=== PATIENT | female | born 1995 | race Caucasian/White ===

== ENCOUNTER 2016-11-04 00:51 | Outpatient (CLI) | payer OTHER ==
[~2016-11-04] VITALS: Ht 165.1 cm; Wt 65.0 kg
[2016-11-04 01:49] VITALS: Ht 165.1 cm; Wt 65.0 kg
[2016-11-04] MEDS ORDERED: PRENTAB26 PO (01:51)
--- NOTE | 2016-11-05 10:50 | EDITING REQUIRED CODING QUERY ---
DIAGNOSIS NEEDED To promote full compliance with coding requirements relating to patient care, physician participation is requested in all cases of hydroelectric station operator chief uncertainty. Please assist us with the question(s) below: Coding Question: The patient received care in labor and delivery on 11/04/16 as noted within the record. Please document the diagnosis that is being addressed by the medication/treatment. Provider Response: DIAGNOSIS:decreased movement Prior history of severe preeclampsia and delivery at 28 weeks Thank you for your assistance, Sheridan Bhatt - Tree Driller
[2017-01-01] MEDS ORDERED: SUBUTEX PO (12:05)
== END 2016-11-04 01:41 ==
LOC: C.OPB 00:51 → C.LD 00:51 → C.OPB 01:41
PROVIDERS: ATTEND Obstetrics & Gynecology
DX: O36.8130 Decreased fetal movements, third trimester, not applicable or unspecified (principal); Z3A.30 30 weeks gestation of pregnancy

== ENCOUNTER → 2016-12-12 | Outpatient (CLI) | payer OTHER ==
[~2016-12-12] MED LIST: BUPR1SUB23 PO; PRENTAB26 PO; SUBUTEX PO
== END | disposition home or self-care (01) ==
LOC: C.LABSPEC 09:26
PROVIDERS: ATTEND Obstetrics & Gynecology
DX: Z34.83 Encounter for supervision of other normal pregnancy, third trimester (principal)

== ENCOUNTER 2017-01-06 05:43 | Inpatient (IN) | payer OTHER ==
--- NOTE | 2016-12-26 14:55 | HISTORY & PHYSICAL EXAMINATION ---
DATE OF ADMISSION: 01/06/2017 CHIEF COMPLAINT: Intrauterine at term, previous , history of severe toxemia of with IUGR. HISTORY OF PRESENT ILLNESS: The patient is a 21-year-old 3, para 1, had 1 spontaneous AB. She delivered in 2013 at [facility], severe toxemia of , at 28 weeks, a girl, weighed 1 pound 15 ounces. Present has been well dated. Her due date is 01/13/2017. has been also complicated by issues by smoking. She is a half a pack a day smoker. She has had frequent visits, several ultrasounds to ensure growth, adequate growth and fluid and she is presently being scheduled for repeat at term. PAST MEDICAL HISTORY: She has a 3-year-old girl in good health. ALLERGIES: No known drug allergies. PAST SURGICAL HISTORY: , T\T\A, wisdom teeth removed. MEDICAL HISTORY: No history of rheumatic fever, heart disease, heart murmur, diabetes, tuberculosis. SOCIAL HISTORY: Half a pack a day smoker for 8 years. No excessive alcohol intake. She works in home healthcare. FAMILY HISTORY: Mom is 42 in good health. Father 41 in good health. Two brothers in good health. REVIEW OF SYSTEMS: HEAD: No symptoms of frequent or severe headaches. EYES: No symptoms of blurred vision, double vision. EARS: No symptoms of frequent ear infections, difficulty hearing. NOSE: No symptoms of frequent nosebleeds, difficulty breathing through her nose. THROAT: No symptoms of frequent or severe sore throats, difficulty swallowing. RESPIRATORY SYSTEM: No history of asthma, chest pain, shortness of breath. PHYSICAL EXAMINATION: GENERAL: Well-developed, well-nourished 21-year-old white female, alert, oriented x3 and cooperative in no acute distress, appears stated age. EYES: Conjunctivae are pink, sclerae white, no evidence of jaundice. EARS: Had normal light reflex bilaterally. NOSE: Had normal mucosa. Septum is midline. There were no polyps. THROAT: No erythema or evidence of infection. Teeth are in good state of repair. HEAD: Was normocephalic, normal distribution of hair. NECK: Supple. Trachea midline. Thyroid is not enlarged. There is no adenopathy appreciated. Both carotids are of good intensity. CHEST: Clear to auscultation and percussion. No wheezes, rales or rhonchi appreciated. HEART: Regular rhythm. S1 and S2 are normal. BREASTS: Normal. ABDOMEN: Term size fetus, vertex presentation. Well-healed Pfannenstiel scar. PELVIC: Cervix was posterior and closed. MUSCULOSKELETAL: Revealed no calf tenderness. IMPRESSIONS OF THIS CASE: Status post previous section, status post tonsillectomy and adenoidectomy, status post wisdom teeth removal, history of toxemia of , intrauterine at term. MTDD
[2017-01-01 12:53] LABS: BASO % 0.1 %; BASO ABS # 0.01 K/uL (0-0.2); COMPLETE YES; EOS % 0.3 %; IG% 0.3 %; LYMPH % 22.6 %; MEAN CELL VOLUME 84.3 fL (80-100); MEAN CORPUSCULAR HEMOGLOBIN 28.2 pg (25-34); MEAN CORPUSCULAR HGB CONC 33.4 g/dl (32-36); MEAN PLATELET VOLUME 10.7 fL (7.4-10.4); MONO % 6.8 %; NEUT % 69.9 %; PLATELET COUNT 227 K/uL (130-400); RED BLOOD COUNT 4.15 M/uL (4.2-5.4); WHITE BLOOD COUNT 8.85 K/uL (4.8-10.8)
[2017-01-01 13:15] LABS: INR 0.9 (0.9-1.1); PARTIAL THROMBOPLASTIN RATIO 0.9
[2017-01-01 13:24] LABS: BLOOD UREA NITROGEN 5 mg/dl (7-18); BUN/CREATININE RATIO 8.5 (10-20); CALCIUM 8.3 mg/dl (8.5-10.1); CARBON DIOXIDE 24 mmol/L (21-32); CHLORIDE 108 mmol/L (98-107); CREATININE 0.64 mg/dl (0.60-1.20); GLUCOSE 69 mg/dl (70-99); POTASSIUM 3.8 mmol/L (3.5-5.1); SODIUM 141 mmol/L (136-145)
[2017-01-06] VITALS (14 sets, daily range): BP systolic 116–131; BP diastolic 58–83; PULSE 53–82; TEMP 36.6–37.1; O2SAT 94–98; Ht 165.1 cm; Wt 77.3 kg
[~2017-01-06] VITALS: Ht 165.1 cm; Wt 77.3 kg
[~2017-01-06 05:43] MED LIST changes: -BUPR1SUB23 PO
[2017-01-06] MEDS ORDERED: LACTATED RINGER'S 1000ML 1,000 ML IV SCH ×3 (05:51→06:00)
[2017-01-06] MEDS ORDERED: CITRIC ACID/SODIUM CITRATE 15 ML UDC PO SCH (06:00)
[2017-01-06] MEDS ORDERED: CEFOXITIN IV 2000 MG in DEXTROSE 5% 50ML IV SCH (06:00)
[2017-01-06 06:41] LABS: BASO % 0.2 %; BASO ABS # 0.03 K/uL (0-0.2); EOS % 0.2 %; HEMATOCRIT 35.4 % (37-47); IG% 0.3 %; LYMPH % 25.2 %; LYMPH ABS # 3.17 K/uL (1.2-3.4); MEAN CELL VOLUME 83.7 fL (80-100); MEAN CORPUSCULAR HEMOGLOBIN 28.1 pg (25-34); MEAN PLATELET VOLUME 10.6 fL (7.4-10.4); MONO % 6.2 %; NEUT % 67.9 %; PLATELET COUNT 254 K/uL (130-400); RED BLOOD COUNT 4.23 M/uL (4.2-5.4); WHITE BLOOD COUNT 12.58 K/uL (4.8-10.8)
[2017-01-06 06:46] LABS: COMPLETE YES; MEAN CORPUSCULAR HGB CONC 33.6 g/dl (32-36)
[2017-01-06] MEDS ORDERED: ATROPINE SULFATE 0.1 MG/ML 5ML SYR IV PRN (07:00)
[2017-01-06] MEDS ORDERED: ONDANSETRON INJ 2 MG/ML 2 ML VIAL IV PRN ×2 (07:00→08:45)
[2017-01-06] MEDS ORDERED: LABETALOL HCL IV 5 MG/ML 20ML IV PRN (07:00)
[2017-01-06] MEDS ORDERED: MEPERIDINE HCL 25 MG/ML CARP IV PRN (07:00)
[2017-01-06] MEDS ORDERED: FENTANYL CITRATE INJ 50 MCG/1 ML 2 ML VIAL IV PRN (07:00)
[2017-01-06] MEDS ORDERED: HYDROmorphone INJ 1 MG/ML SYR IV PRN (07:00)
[2017-01-06] MEDS ORDERED: EpHEDrine SULFATE INJ 50 MG/ML AMP IV PRN ×2 (07:00→08:45)
[2017-01-06 07:21] LABS: PARTIAL THROMBOPLASTIN RATIO 0.9; PROTHROMBIN TIME (PATIENT) 10.3 SECONDS (9.0-12.0)
[2017-01-06] MEDS ORDERED: MoRPHine SULFATE PF 1 MG/ML 10 ML AMP/VIAL ONE (07:28)
[2017-01-06 07:40] LABS: BLOOD UREA NITROGEN 5 mg/dl (7-18); BUN/CREATININE RATIO 8.9 (10-20); CARBON DIOXIDE 23 mmol/L (21-32); CHLORIDE 108 mmol/L (98-107); CREATININE 0.55 mg/dl (0.60-1.20); GLUCOSE 77 mg/dl (70-99); POTASSIUM 3.8 mmol/L (3.5-5.1); SODIUM 140 mmol/L (136-145)
[2017-01-06] MEDS ORDERED: OXYTOCIN INJ 10 UNITS/ML VIAL ONE (08:29)
[2017-01-06] MEDS ORDERED: PHENYLEPHRINE 100MCG/ML 5ML SYR ONE (08:29)
[2017-01-06] MEDS ORDERED: SODIUM CHLORIDE 0.9% 1000ML 1,000 ML IV PRN (08:39)
[2017-01-06] MEDS ORDERED: LACTATED RINGER'S 1000ML 500 ML IV PRN (08:39)
[2017-01-06] MEDS ORDERED: NALOXONE HCL INJ 1 MG in SODIUM CHLORIDE 0.9% 1000ML 1,000 ML IV PRN (08:39)
[2017-01-06] MEDS ORDERED: NALOXONE HCL INJ 0.08 MG in SYRINGE 1.8 ML IV PRN (08:39)
[2017-01-06] MEDS ORDERED: NALOXONE HCL 0.4 MG/1 ML VIAL/CARP IV PRN (08:45)
[2017-01-06] MEDS ORDERED: NO NARCOTICS OR SEDATIVES SCH (08:45)
[2017-01-06] MEDS ORDERED: DiphenhydrAMINE HCL 50 MG/ML VIAL IV PRN ×2 (08:45)
[2017-01-06] MEDS ORDERED: MoRPHine SULFATE PF 1 MG/ML 10 ML AMP/VIAL EPI PRN (08:45)
[2017-01-06] MEDS ORDERED: MoRPHine SULFATE 2 MG/ML CARP IV PRN (08:45)
[2017-01-06] MEDS ORDERED: NALBUPHINE HCL INJ 10 MG/ML AMP IV PRN (08:45)
[2017-01-06] MEDS ORDERED: LANOLIN OINT EXT PRN ×2 (09:00)
[2017-01-06] MEDS ORDERED: MAGNESIUM HYDROXIDE SUSP 30 ML UDC PO PRN (09:00)
[2017-01-06] MEDS ORDERED: SENNA 8.6 MG TAB PO PRN (09:00)
[2017-01-06] MEDS ORDERED: HYDROCORTISONE ACETATE 25 MG SUPP PR PRN (09:00)
[2017-01-06] MEDS ORDERED: DIPHTHERIA/TETANUS/PERTUSSIS 0.5 ML SYR/VIAL IM. ONE (09:00)
[2017-01-06] MEDS ORDERED: BENZOCAINE 20% AER SPR 82.5 GM CAN EXT PRN (09:00)
[2017-01-06] MEDS ORDERED: SUPERCREAM 0.870 % 15GM JAR EXT PRN (09:00)
[2017-01-06] MEDS: KETOROLAC TROMETHAMINE 30 MG/ML VIAL IV. PRN ×3 (10:16→23:09)
[2017-01-06] MEDS: OXYTOCIN INJ 20 UNITS in LACTATED RINGER'S 1000ML 1,000 ML IV SCH ×2 (10:40→19:34)
--- NOTE | 2017-01-06 11:00 | OPERATIVE REPORT ---
DATE OF OPERATION: 01/06/2017 PROCEDURE: Repeat low segment section. INDICATIONS FOR SURGERY: Previous . PREOPERATIVE DIAGNOSES: Intrauterine , 39 weeks' gestation, previous . POSTOPERATIVE DIAGNOSES: Same, nuchal cord x1, delivered live male , thin lower uterine segment. ESTIMATED BLOOD LOSS: 500 mL. SURGEON: Dr. Johnson. TANNING WHEEL FILLER: sales assistants and salespersons. ANESTHESIA: Spinal. OPERATIVE FINDINGS AND PROCEDURE: The patient was brought to the OR table, correctly identified by armband and conversation. Spinal anesthesia was administered. Carpio catheter was inserted aseptically in the bladder connected to gravity drainage. Compression stockings were applied. Lower abdomen was painted with an alcohol based sterilizing solution, draped in usual sterile fashion. The level of anesthesia was tested and found to be adequate. Pfannenstiel incision was made through a previous scar. Hemostasis was secured by electrocauterization. Fascia was incised transversely, from underlying muscle by blunt and sharp dissection. Recti muscles were in the midline. There was some omentum adherent to the undersurface of the previous incision. We were able to get adequate exposure of the lower uterine segment which was extremely thin. Incision was made above the vesicouterine fold. Bladder was pushed out of the operative field. Lower uterine segment was entered with scissors. Clear amniotic fluid was seen. Museum Docent's hand was inserted in uterine cavity. A vectis retractor was applied to the head and with fundal pressure, the 's head and body was delivered. Also it should be noted that cord was reduced over the head prior to delivery of the body. Then the cord was clamped and cut. The cord blood was taken. The infant was attended to by the customer security clerk, Dr. Canales was scrubbed and present at time of delivery. After taking the cord blood, placenta was removed manually. Uterine cavity was cleansed with a clean sponge. The uterus, tubes, and ovaries were brought out through the incision. Ten units of IM Pitocin was given into the uterine cavity. Then we did a very careful in a double layer approximation of the myometrium. The muscular layer was approximated with continuous heavy duty chromic and we made sure to thicken up the lower uterine segment. After that, close the fascial layer with a heavy duty Vicryl. Palpation revealed local 1 weak area towards the left side and this was approximated with a qocewa-[id number] suture of heavy duty Vicryl and about 2 other heavy duty [id number] sutures were used to complete the hemostatic process. Following this, palpation of the uterine segment found it to be intact and protected. The peritoneal edges were restored with a continuous 3-0 chromic. Tubes and ovaries were inspected and found to be normal. Pelvis was cleansed of all blood clots and debris. Uterus, tubes, and ovaries were reinserted into the abdominal cavity. The omentum was taken off the anterior abdominal wall. Careful anatomical approximation of the anterior abdominal wall was now performed. Peritoneal edges were restored with a continuous mattress suture of chromic catgut. Recti muscles were approximated approximately interrupted [id number] suture of chromic catgut. The fascia was closed with continuous interlocking suture of Vicryl on each side and run to the middle and then tied. The subcutaneous was approximated with continuous plain and skin edges were approximated with staple clips. I attest to the content of the Intraoperative Record and any orders documented therein. Any exceptio ns are noted below.
[2017-01-06] MEDS: MEPERIDINE HCL 25 MG/ML CARP IV PRN ×2 (11:35→11:53)
[2017-01-06] MEDS: SIMETHICONE 80 MG CHEW PO SCH ×3 (13:00→19:35)
--- NOTE | 2017-01-06 13:38 | Anesthesiology Progress Note ---
Anesthesia Post Op Note Date & Time Jan 06, 2017 at 13:35 Vital Signs Pain Intensity: 8.0 Notes Mental Status: alert / awake / arousable, participated in evaluation Pt Amnestic to Procedure: Yes Nausea / Vomiting: adequately controlled Pain: adequately controlled Airway Patency, RR, SpO2: stable & adequate BP & HR: stable & adequate Hydration State: stable & adequate Neuraxial Anesthesia: was administered, sensory block is resolving Anesthetic Complications: no major complications apparent
[2017-01-06] MEDS: DOCUSATE SODIUM 100 MG CAP PO SCH (19:35)
[2017-01-07] VITALS (10 sets, daily range): BP systolic 110–135; BP diastolic 60–85; PULSE 55–72; TEMP 36.9–37.4; O2SAT 95–99
[2017-01-07] MEDS ORDERED: DC INTRASPINAL MORPHINE SCH (01:45)
[2017-01-07] MEDS ORDERED: MEPERIDINE HCL 75 MG/ML CARP IV PRN (01:46)
[2017-01-07] MEDS ORDERED: ONDANSETRON INJ 2 MG/ML 2 ML VIAL IV PRN (01:46)
[2017-01-07] MEDS ORDERED: ZOLPIDEM TARTRATE 5 MG TAB PO PRN (01:46)
[2017-01-07] MEDS ORDERED: KETOROLAC TROMETHAMINE 30 MG/ML VIAL IV. PRN (01:46)
[2017-01-07] MEDS ORDERED: DiphenhydrAMINE HCL 50 MG/ML VIAL IV PRN (01:46)
[2017-01-07] MEDS ORDERED: OXYCODONE/ACETAMINOPHEN 5-325 TAB PO PRN (01:46)
[2017-01-07] MEDS ORDERED: MEPERIDINE HCL 50 MG/ML CARP IV PRN (01:46)
[2017-01-07] MEDS: IBUPROFEN 600 MG TAB PO PRN ×4 (03:53→19:30)
[2017-01-07] MEDS: OXYCODONE/ACETAMINOPHEN 5-325 TAB PO PRN ×4 (03:54→19:30)
[2017-01-07 07:02] LABS: BASO % 0.2 %; BASO ABS # 0.02 K/uL (0-0.2); COMPLETE YES; EOS % 0.3 %; HEMATOCRIT 30.3 % (37-47); IG% 0.2 %; LYMPH % 14.6 %; LYMPH ABS # 1.28 K/uL (1.2-3.4); MEAN CELL VOLUME 83.2 fL (80-100); MEAN CORPUSCULAR HEMOGLOBIN 27.2 pg (25-34); MEAN CORPUSCULAR HGB CONC 32.7 g/dl (32-36); MEAN PLATELET VOLUME 10.2 fL (7.4-10.4); MONO % 7.2 %; NEUT % 77.5 %; PLATELET COUNT 162 K/uL (130-400); RED BLOOD COUNT 3.64 M/uL (4.2-5.4); WHITE BLOOD COUNT 8.77 K/uL (4.8-10.8)
--- NOTE | 2017-01-07 08:18 | Progress Note ---
Subjective Jan 07, 2017. Subjective conversation w/ patient Ambulation: limited ambulation Voiding: rico catheter in place Passing Gas: No Diet Tolerance: Clear Liquids Lochia: Small Feeding Type: Breast Feeding Review of Systems Constitutional: + fever Objective Vital Signs Date Time Temp Pulse Resp B/P Pulse Ox O2 Delivery O2 Flow Rate FiO2 01/07/17 07:57 37.4 59 14 129/79 98 Room Air 01/07/17 04:40 37.1 70 18 110/60 95 Room Air 01/07/17 02:00 18 97 01/07/17 01:05 18 97 01/07/17 00:15 18 96 01/06/17 23:15 37.1 62 18 116/70 95 Room Air 01/06/17 23:15 18 95 01/06/17 23:15 95 Room Air 01/06/17 22:15 18 96 01/06/17 21:30 18 96 01/06/17 20:40 18 95 01/06/17 19:40 36.9 82 18 120/58 97 Room Air 01/06/17 19:40 18 97 01/06/17 18:57 18 98 01/06/17 18:00 18 97 01/06/17 17:15 18 98 01/06/17 16:00 18 97 01/06/17 16:00 97 Room Air 01/06/17 16:00 36.9 67 18 118/70 97 Room Air 01/06/17 15:15 18 96 01/06/17 14:00 16 94 01/06/17 13:15 36.6 61 16 131/83 Room Air 01/06/17 13:00 16 97 01/06/17 11:45 98 Room Air 01/06/17 11:45 36.6 53 16 122/78 Room Air 01/06/17 11:45 16 98 Physical Exam General Appearance: WELL-APPEARING Abdomen: non tender, + abnormal bowel sounds Fundus: Firm, Non-Tender Incision Description: Clean, Dry & Intact Extremities: no pedal edema, no calf tenderness Laboratory Results Last 24 Hours Test 01/07/17 06:25 White Blood Count 8.77 K/uL Red Blood Count 3.64 M/uL Hemoglobin 9.9 g/dL Hematocrit 30.3 % Mean Corpuscular Volume 83.2 fL Mean Corpuscular Hemoglobin 27.2 pg Mean Corpuscular Hemoglobin Concent 32.7 g/dl Platelet Count 162 K/uL Mean Platelet Volume 10.2 fL Neutrophils (%) (Auto) 77.5 % Lymphocytes (%) (Auto) 14.6 % Monocytes (%) (Auto) 7.2 % Eosinophils (%) (Auto) 0.3 % Basophils (%) (Auto) 0.2 % Neutrophils # (Auto) 6.79 K/uL Lymphocytes # (Auto) 1.28 K/uL Monocytes # (Auto) 0.63 K/uL Eosinophils # (Auto) 0.03 K/uL Basophils # (Auto) 0.02 K/uL RDW Standard Deviation 39.8 fL RDW Coefficient of Variation 13.0 % Immature Granulocyte % (Auto) 0.2 % Immature Granulocyte # (Auto) 0.02 K/uL Assessment and Plan Problem List Medical Problems: (1) Opiate withdrawal Status: Acute (2) Status: Acute Post-Op Day#: 1 Continue Routine Care: hypoactive bowel sounds present
[2017-01-07] MEDS: DOCUSATE SODIUM 100 MG CAP PO SCH ×2 (08:31→19:30)
[2017-01-07] MEDS: SIMETHICONE 80 MG CHEW PO SCH ×4 (08:31→19:30)
[2017-01-07] MEDS: FERROUS SULFATE 325 MG TAB PO SCH (08:31)
[2017-01-07] MEDS: PRENATAL VITAMIN TAB PO SCH (08:32)
--- NOTE | 2017-01-07 10:32 | Anesthesiology Progress Note ---
Anesthesia Post Op Note Date & Time Jan 07, 2017 at 10:32 Vital Signs Pain Intensity: 4.0 Vital Signs Past 12 Hours Date Time Temp Pulse Resp B/P Pulse Ox O2 Delivery O2 Flow Rate FiO2 01/07/17 08:51 98 Room Air 01/07/17 07:57 37.4 59 14 129/79 98 Room Air 01/07/17 07:30 98 Room Air 01/07/17 04:40 37.1 70 18 110/60 95 Room Air 01/07/17 02:00 18 97 01/07/17 01:05 18 97 01/07/17 00:15 18 96 01/06/17 23:15 37.1 62 18 116/70 95 Room Air 01/06/17 23:15 18 95 01/06/17 23:15 95 Room Air Notes Mental Status: alert / awake / arousable, participated in evaluation Pt Amnestic to Procedure: Yes Nausea / Vomiting: adequately controlled Pain: adequately controlled Airway Patency, RR, SpO2: stable & adequate BP & HR: stable & adequate Hydration State: stable & adequate Anesthetic Complications: no major complications apparent
[2017-01-08] MEDS: IBUPROFEN 600 MG TAB PO PRN ×3 (01:12→14:01)
[2017-01-08] MEDS: OXYCODONE/ACETAMINOPHEN 5-325 TAB PO PRN ×3 (01:12→14:00)
[2017-01-08 07:40] VITALS: BP 125/80; PULSE 55; TEMP 37.1; O2SAT 98
[2017-01-08] MEDS: FERROUS SULFATE 325 MG TAB PO SCH (07:51)
[2017-01-08] MEDS: PRENATAL VITAMIN TAB PO SCH (07:51)
[2017-01-08] MEDS: SIMETHICONE 80 MG CHEW PO SCH ×2 (07:51→13:59)
[2017-01-08] MEDS: DOCUSATE SODIUM 100 MG CAP PO SCH (07:51)
[2017-01-08] MEDS ORDERED: BISACODYL 10 MG SUPP PR PRN (09:00)
--- NOTE | 2017-01-08 10:48 | Progress Note ---
Subjective Jan 08, 2017. Subjective conversation w/ patient Ambulation: ambulating normally Voiding: no voiding problems, rico catheter in place Passing Gas: Yes Diet Tolerance: Regular Diet Lochia: Small Feeding Type: Breast Feeding Review of Systems Constitutional: + fever Objective Vital Signs Date Time Temp Pulse Resp B/P Pulse Ox O2 Delivery O2 Flow Rate FiO2 01/07/17 23:05 36.9 55 16 121/67 97 Room Air 01/07/17 23:05 Room Air 01/07/17 19:30 Room Air 01/07/17 19:30 37.1 66 16 119/66 99 Room Air 01/07/17 15:00 96 Room Air 01/07/17 15:00 37.0 72 18 135/85 96 Room Air Physical Exam General Appearance: WELL-APPEARING Respiratory/Chest: lungs clear Abdomen: normal bowel sounds, non tender Fundus: Firm, Non-Tender Incision Description: Clean, Dry & Intact Extremities: no pedal edema, no calf tenderness Assessment and Plan Problem List Medical Problems: (1) Opiate withdrawal Status: Acute (2) Status: Acute Post-Op Day#: 2
--- NOTE | 2017-01-08 10:50 | Discharge Instructions ---
Discharge Instructions Date of Service Jan 08, 2017. Admission Reason for Admission: Term , Previous Section #746 Discharge Discharge Diagnosis / Problem: repeat section Discharge Goals Goal(s): Routine recovery after Activity Recommendations Activity Limitations: as noted below ACTIVITY RECOMMENDATIONS: * Gradual return to full activity over the next 2-3 weeks. * No lifting - nothing heavier than baby over the next 2-3 weeks. * Do not engage in vigorous exercise, sexual activity or sports for 6 weeks. * Do not drive or operate any motorized equipment for 14 days. * You may shower/bathe daily. DIET: Resume Previous Diet If Breast-feeding: * Increase caloric intake by 500 calories, eat 3 well balanced meals, 2 high protein snacks a day and drink 6-8 8oz. glasses of fluid per day. BREAST CARE: If you are not breast feeding: * Wear a supportive bra 24 hours a day for one to two weeks. * Avoid stimulating your breasts and nipples as much as possible during the first few weeks after delivery. * When taking a shower, have the warm water hit your back, not breasts. * When your breasts feel full, apply ice packs. Usually three to four times a day helps ease the discomfort. * Take a mild pain medication (Tylenol / Motrin) when you are uncomfortable. If breast feeding: * Use breast milk to lubricate nipples. Lansinoh cream may be used for sore nipples. You do not need to remove cream prior to breast feeding. If using a different brand of cream, check the label for directions regarding removal of cream prior to nursing. * Wear a supportive bra. * If having problems with breasts or breast feeding, call a system consultant or your health care provider. VITAMINS: * One tablet daily. Continue taking while or until you have your check up in 6 weeks. SPECIAL CARE INSTRUCTIONS: * Vaginal rest (no tampons, douching, intercourse) until after doctor's visit. * control as discussed with doctor. * Verbalizes understanding of car seat law as reviewed with patient by nursing. * Car Seat hand-out given and reviewed with patient by nursing. * Shaken baby information reviewed with patient by nursing. Call you doctor if: * Heavy bleeding (saturating a pad an hour) or passing clots the size of your fist. Bleeding has a foul smelling odor. * A fever greater than 100.4 degrees F (38 degrees C) on two occasions four hours apart and/or chills. * Unusual pain in the pelvic or vaginal areas. Pain should improve each day . * Call the doctor for any increased redness, drainage or swelling around the incision and any pain unrelieved by prescribed pain medication. * Signs and symptoms of phlebitis(possible blood clots forming in the veins): leg pain, warm, red or swollen area on leg. * "Baby Blues" lasting longer than two weeks. If you have any questions or concerns, call your health care practitioner at [phone]. FOLLOW-UP VISIT: Follow-up visit for examination in 6 weeks. Incision check (staple removal) in 1 week. Please call office at [phone] if not already scheduled. . Current Hospital Diet Patient's current hospital diet: Regular OB Diet Discharge Diet Recommended Diet: Regular Diet Procedures Procedures Performed: Live Male @ 0803 Pending Studies Studies pending at discharge: no Medical Emergencies . Who to Call and When: Medical Emergencies: If at any time you feel your situation is an emergency, please call 911 immediately. . Non-Emergent Contact Non-Emergency issues call your: Salesperson [employer] Call Non-Emergent contact if: temperature is above 100.5 . . "Provider Documentation" section prepared by Cody Johnson. VTE Core Measure Inpt VTE Proph given/why not?: Treatment not indicated
--- NOTE | 2017-01-08 11:07 | DISCHARGE SUMMARY ---
Mrs. Yee was admitted to the hospital for repeat section. She had had a previous due to severe toxemia with an early delivery. She was presently documented to be 39 weeks' gestation, had had an uneventful course, had had frequent visits to check her pressures. On the day of admission, she was taken to the OR where she underwent repeat low-segment section, delivered a live infant in good condition. At the time of surgery, the lower uterine segment was thin and I repaired the defect in the lower uterine segment with a double-layer closure. Her preoperative hemoglobin was 11.7, hematocrit 35.0. Postoperatively, hemoglobin fell to 9.9, hematocrit 30.3. On the second postoperative day, the patient was ambulating well, eating well. Her pain was well controlled with a combination of Percocet and Motrin. She requested early discharge. She was given prescriptions for 60 Percocet 5/325 and Motrin and was told to return to the office to get her dom out.
[2017-01-08 14:00] VITALS: BP_DIAS 80; PULSE 55; TEMP 37.1
== END 2017-01-08 14:00 | disposition home or self-care (01) | DRG 766 ==
LOC: C.LD 05:43 → C.OBG 12:15 → EDSTATUS 12:31 → C.OBG 01-08 08:44
PROVIDERS: ADMIT Obstetrics & Gynecology; ATTEND Obstetrics & Gynecology
PROC: 10D00Z1 Extraction of Products of Conception, Low, Open Approach (ICD-10-PCS; principal; 2017-01-06 07:30)
DX: O34.211 Maternal care for low transverse scar from previous cesarean delivery (principal); Z23 Encounter for immunization; O99.334 Smoking (tobacco) complicating childbirth; F17.210 Nicotine dependence, cigarettes, uncomplicated; O34.593 Maternal care for other abnormalities of gravid uterus, third trimester; N85.8 Other specified noninflammatory disorders of uterus; O69.81X0 Labor and delivery complicated by cord around neck, without compression, not applicable or unspecified; Z79.891 Long term (current) use of opiate analgesic; Z37.0 Single live birth; Z3A.39 39 weeks gestation of pregnancy

== ENCOUNTER → 2017-04-16 | Outpatient (CLI) | payer BC, OTHER ==
[~2017-04-16] MED LIST changes: +BUPR1SUB23 PO
--- NOTE | 2017-04-16 14:26 | DIAGNOSTIC IMAGING REPORT ---
CHEST 2 VIEWS ROUTINE CLINICAL HISTORY: +PPD COMPARISON STUDY: No previous studies for comparison. FINDINGS: The cardiac and mediastinal contours are normal. There is no evidence of focal pulmonary consolidation. There is no evidence of failure. No pleural effusions are visualized.[ There is no conventional radiographic evidence of adenopathy. No granulomatous calcifications are visualized. IMPRESSION: No active disease in the chest. Electronically signed by: Fortino Mccarthy M.D. 04/16/2017 2:24 PM Dictated Date/Time: 04/16/2017 2:24 PM
== END | disposition home or self-care (01) ==
LOC: C.RAD 13:47
PROVIDERS: ATTEND Preventive Medicine Occupational Medicine
DX: R76.11 Nonspecific reaction to tuberculin skin test without active tuberculosis (principal)

== ENCOUNTER 2017-06-21 15:08 | Emergency (ER) | payer BC, OTHER ==
[~2017-06-21] VITALS: Ht 165.1 cm; Wt 68.1 kg
[~2017-06-21 15:08] MED LIST changes: -BUPR1SUB23 PO
[2017-06-21 15:17] VITALS: TEMP 37.1; Ht 165.1 cm; Wt 68.1 kg
[2017-06-21] MEDS ORDERED: SODIUM CHLORIDE 0.9% 1000ML 1,000 ML IV STA (15:41)
--- NOTE | 2017-06-21 15:41 | EMERGENCY ROOM VISIT NOTE ---
History Report prepared by Maeveibted: Akosua Archibald Under the Supervision of: Dr. Lawrence Borges D.O. First contact with patient: 15:29 Chief Complaint: ED VAG BLEEDING Stated Complaint: POSSIBLE MISCARRIAGE History of Present Illness The patient is a 21 year old female who presents to the Emergency Room with complaints of intermittent vaginal bleeding since 1445 yesterday afternoon. She reports she experienced abdominal cramping and then felt "blood cline out" of her vagina yesterday afternoon. She soaked through 2 to 3 pads with blood. Today she has experienced brown colored spotting. This is her 4th and she produced a positive test earlier this month. She has experienced 1 miscarriage and has 2 children at home. Her last menstrual period was on April 25, 2017. She was supposed to see her MAINTENANCE TECHNICIAN yesterday, but was unable to get a dubbing machine operator for her kids. Source of History: patient Onset: 1445 yesterday Position: other (vagina) Quality: other (vaginal bleeding) Timing: other (intermittent) Associated Symptoms: + abdominal pain Review of Systems See HPI for pertinent positives & negatives. A total of 10 systems reviewed and were otherwise negative. Past Medical & Surgical Medical Problems: (1) CHRONIC TONSILLITIS (2) Hypertension (3) Tonsillectomy (4) [place] Teeth Removal Surgical Problems: (1) History of delivery (2) Status post repeat low transverse section Family History Patient reports no known family medical history. Social History Smoking Status: Never Smoker Alcohol Use: none Drug Use: none Marital Status: in relationship Housing Status: lives with family Occupation Status: unemployed Current/Historical Medications Scheduled Buprenorphine Hcl-Naloxone Hcl (Suboxone 8-2 Mg), 0.5 TAB PO DAILY Allergies Coded Allergies: No Known Allergies (Unverified , NONE, 01/08/17) Physical Exam Vital Signs Date Time Temp Pulse Resp B/P (MAP) Pulse Ox O2 Delivery O2 Flow Rate FiO2 06/21/17 17:13 78 18 108/76 98 06/21/17 15:17 37.1 74 16 124/80 98 Room Air Physical Exam GENERAL: Patient is awake, alert, mildly anxious appearing but comfortable. EYES: The conjunctivae are clear. The pupils are round and reactive. EARS, NOSE, MOUTH AND THROAT: The nose is without any evidence of any deformity. Mucous membranes are moist tongue is midline NECK: The neck is nontender and supple. RESPIRATORY: Normal respiratory effort is noted there is no evidence of wheezing rhonchi or rales CARDIOVASCULAR: Regular rate and rhythm noted there no murmurs rubs or gallops normal S1 normal S2 GASTROINTESTINAL: The abdomen is soft. Bowel sounds are present in all quadrants. Abdomen is nontender MUSCULOSKELETAL/EXTREMITIES: There is no evidence of gross deformity full range of motion is noted in the hips and shoulders SKIN: There is no obvious evidence of any rash. There are no petechiae, pallor or cyanosis noted. NEUROLOGIC: Patient is awake alert and oriented x3 Medical Decision & Procedures Laboratory Results 06/21/17 15:50 Red Blood Count 4.64, Mean Corpuscular Volume 85.6, Mean Corpuscular Hemoglobin 28.2, Mean Corpuscular Hemoglobin Concent 33.0, Mean Platelet Volume 9.9, Neutrophils (%) (Auto) 43.4, Lymphocytes (%) (Auto) 47.2, Monocytes (%) (Auto) 8.0, Eosinophils (%) (Auto) 1.2, Basophils (%) (Auto) 0.2, Neutrophils # (Auto) 2.44, Lymphocytes # (Auto) 2.66, Monocytes # (Auto) 0.45, Eosinophils # (Auto) 0.07, Basophils # (Auto) 0.01 06/21/17 15:50 Test 06/21/17 15:50 06/21/17 16:10 White Blood Count 5.63 K/uL (4.8-10.8) Red Blood Count 4.64 M/uL (4.2-5.4) Hemoglobin 13.1 g/dL (12.0-16.0) Hematocrit 39.7 % (37-47) Mean Corpuscular Volume 85.6 fL (80-100) Mean Corpuscular Hemoglobin 28.2 pg (25-34) Mean Corpuscular Hemoglobin Concent 33.0 g/dl (32-36) Platelet Count 207 K/uL (130-400) Mean Platelet Volume 9.9 fL (7.4-10.4) Neutrophils (%) (Auto) 43.4 % Lymphocytes (%) (Auto) 47.2 % Monocytes (%) (Auto) 8.0 % Eosinophils (%) (Auto) 1.2 % Basophils (%) (Auto) 0.2 % Neutrophils # (Auto) 2.44 K/uL (1.4-6.5) Lymphocytes # (Auto) 2.66 K/uL (1.2-3.4) Monocytes # (Auto) 0.45 K/uL (0.11-0.59) Eosinophils # (Auto) 0.07 K/uL (0-0.5) Basophils # (Auto) 0.01 K/uL (0-0.2) RDW Standard Deviation 42.1 fL (36.4-46.3) RDW Coefficient of Variation 13.6 % (11.5-14.5) Immature Granulocyte % (Auto) 0.0 % Immature Granulocyte # (Auto) 0.00 K/uL (0.00-0.02) Prothrombin Time 11.2 SECONDS (9.0-12.0) Prothromb Time International Ratio 1.0 (0.9-1.1) Activated Partial Thromboplast Time 27.5 SECONDS (21.0-31.0) Partial Thromboplastin Ratio 1.1 Anion Gap 8.0 mmol/L (3-11) Est Creatinine Clear Calc Drug Dose 118.5 ml/min Estimated GFR () 144.6 Estimated GFR (Non- 124.8 BUN/Creatinine Ratio 11.6 (10-20) Calcium Level 8.8 mg/dl (8.5-10.1) Total Bilirubin 0.2 mg/dl (0.2-1) Aspartate Amino Transf (AST/SGOT) 11 U/L (15-37) Alanine Aminotransferase (ALT/SGPT) 15 U/L (12-78) Alkaline Phosphatase 52 U/L (45-117) Total Protein 7.7 gm/dl (6.4-8.2) Albumin 3.9 gm/dl (3.4-5.0) Globulin 3.8 gm/dl (2.5-4.0) Albumin/Globulin Ratio 1.0 (0.9-2) Human Chorionic Gonadotropin, Quant 13272 mIU/mL Urine Color YELLOW Urine Appearance CLOUDY (CLEAR) Urine pH 5.5 (4.5-7.5) Urine Specific [place] 1.021 (1.000-1.030) Urine Protein NEG (NEG) Urine Glucose (UA) NEG (NEG) Urine Ketones NEG (NEG) Urine Occult Blood 3+ (NEG) Urine Nitrite NEG (NEG) Urine Bilirubin NEG (NEG) Urine Urobilinogen NEG (NEG) Urine Leukocyte Esterase NEG (NEG) Urine WBC (Auto) 1-5 /hpf (0-5) Urine RBC (Auto) 0-4 /hpf (0-4) Urine Hyaline Casts (Auto) 5-10 /lpf (0-5) Urine Epithelial Cells (Auto) >30 /lpf (0-5) Urine Bacteria (Auto) 1+ (NEG) Laboratory results per my review. ED Course 1532: The patient was evaluated in room C3. A complete history and physical examination were performed. 1535: Bedside ultrasound was performed. An intrauterine gestational sac with pull and detectable heart beat seen on ultrasound. Another area could be consistent with a second gestational sac or subchorionic hemorrhage. Another ultrasound will be obtained. 1710: I reevaluated the patient. She is feeling much better. I discussed her results and discharge instructions and she verbalized complete understanding and agreement. Medical Decision Prior records/ancillary studies reviewed. Triage Nursing notes reviewed. The patient's history was concerning for vaginal bleeding and abdominal pain. Differential diagnosis: Etiologies such as ectopic , dysfunction uterine bleeding, bleeding dyscrasia, trauma, infection, as well as others were entertained. The patient is a 21-year-old female who presented to the emergency department for an evaluation of vaginal bleeding. The patient that she was by urine test but has not sought any outpatient care as of yet. Bedside ultrasound revealed an intrauterine gestational sac but this appeared very irregular however given that it was not a formal ultrasound one was ordered to evaluate this finding further. I discussed patient's laboratory results with her. She was unable to stay long enough to have the pelvic ultrasound because of time constraints. She was encouraged to follow-up with her MAINTENANCE TECHNICIAN physician this week for reevaluation. She was also encouraged to rest and avoid any strenuous activity or heavy lifting. She was also encouraged to return to the emergency department immediately if symptoms change worsen or the need arises. Medication Reconcilliation Current Medication List: was personally reviewed by me Blood Pressure Screening Patient's blood pressure: Normal blood pressure Blood pressure disposition: Did not require urgent referral Impression Primary Impression: Vaginal bleeding Additional Impressions: Threatened miscarriage Pelvic pain Scribe Attestation The scribe's documentation has been prepared under my direction and personally reviewed by me in its entirety. I confirm that the note above accurately reflects all work, treatment, procedures, and medical decision making performed by me. Departure Information Dispostion Home / Self-Care Referrals No Doctor, Assigned (PCP) Patient Instructions ED Miscarriage Poss, [facility] Additional Instructions Follow-up with your MAINTENANCE TECHNICIAN physician is possible. Rest and avoid any strenuous activity. Drink plenty clear liquids. Return to the emergency department immediately if symptoms change worsen or the need arises. Problem Qualifiers
[2017-06-21] MEDS ORDERED: BUPR1SUB23 PO (15:57)
[2017-06-21 16:05] LABS: BASO % 0.2 %; BASO ABS # 0.01 K/uL (0-0.2); COMPLETE YES; EOS % 1.2 %; HEMATOCRIT 39.7 % (37-47); LYMPH % 47.2 %; LYMPH ABS # 2.66 K/uL (1.2-3.4); MEAN CELL VOLUME 85.6 fL (80-100); MEAN CORPUSCULAR HEMOGLOBIN 28.2 pg (25-34); MEAN PLATELET VOLUME 9.9 fL (7.4-10.4); NEUT % 43.4 %; PLATELET COUNT 207 K/uL (130-400); RED BLOOD COUNT 4.64 M/uL (4.2-5.4); WHITE BLOOD COUNT 5.63 K/uL (4.8-10.8)
[2017-06-21 16:15] LABS: PARTIAL THROMBOPLASTIN RATIO 1.1; PROTHROMBIN TIME (PATIENT) 11.2 SECONDS (9.0-12.0)
[2017-06-21 16:22] LABS: MANUAL MICROSCOPIC REQUIRED? NO; REVIEW REQ? NO; URINE APPEARANCE CLOUDY (CLEAR); URINE BILIRUBIN NEG (NEG); URINE COLOR YELLOW; URINE EPITHELIAL CELL AUTO >30 /lpf (0-5); URINE NITRITE NEG (NEG); URINE PH 5.5 (4.5-7.5); URINE SPECIFIC GRAVITY 1.021 (1.000-1.030); UROBILINOGEN NEG (NEG)
[2017-06-21 16:37] LABS: BUN/CREATININE RATIO 11.6 (10-20); CALCIUM 8.8 mg/dl (8.5-10.1); CREATININE 0.67 mg/dl (0.60-1.20); POTASSIUM 3.7 mmol/L (3.5-5.1)
[2017-06-21 17:13] VITALS: BP 108/76; PULSE 78; O2SAT 98
== END 2017-06-21 17:15 | disposition home or self-care (01) ==
LOC: C.EDB 15:09 → C.EDC 17:15
DX: O20.0 Threatened abortion (principal); I10 Essential (primary) hypertension; Z98.890 Other specified postprocedural states; Z79.899 Other long term (current) drug therapy

== ENCOUNTER → 2017-08-18 | Outpatient (CLI) | payer BC, OTHER ==
[~2017-08-18] MED LIST changes: +BUPR1SUB23 PO; -PRENTAB26 PO; -SUBUTEX PO
[2017-08-20 13:55] LABS: CHLAMYDIA TRACH RNA*** NOT DETECTED (NOT DETECTED); GC (NEIS GONORRHOEAE)RNA** NOT DETECTED (NOT DETECTED)
== END | disposition home or self-care (01) ==
LOC: C.LABSPEC 14:47
PROVIDERS: ATTEND Obstetrics & Gynecology
DX: Z34.81 Encounter for supervision of other normal pregnancy, first trimester (principal)

== ENCOUNTER → 2017-08-18 | Outpatient (CLI) | payer BC, OTHER | END | disposition home or self-care (01) | LOC: C.PAPS 16:21 | PROVIDERS: ATTEND Obstetrics & Gynecology | DX: Z34.81 Encounter for supervision of other normal pregnancy, first trimester (principal) ==

== ENCOUNTER → 2018-01-12 | Outpatient (CLI) | payer BC, OTHER ==
--- NOTE | 2018-01-20 11:42 | HISTORY & PHYSICAL EXAMINATION ---
DATE OF ADMISSION: 01/20/2018 CHIEF COMPLAINT: Intrauterine at term, desire for permanent sterilization, 2 previous sections, pelvic pain and discomfort. HISTORY OF PRESENT ILLNESS: The patient is a 22-year-old 4, para 2. She had 1 spontaneous AB in first trimester at 8 weeks gestation . Her first was complicated by severe toxemia, which necessitated a delivery by at 28 weeks gestation. weighed 1 pound 15 ounce female and actually has done quite well. Her third was a repeat at 39 weeks. She did well, male, 6 pounds 12 ounces. She requests permanent sterilization. She has been made aware of the procedure of tubal ligation including the fact that this procedure is intended to result in permanent and irreversible sterility and that occasionally the procedure fails and that there are alternative temporary forms of control. Her history is also complicated by the fact that she was addicted to pain pills and she is presently on Subutex and she is also a 6-cigarette a day smoker. Recently, she has been having trouble with this swelling and pelvic pressure and pain and has difficulty sleeping and has taken off from work. PAST MEDICAL HISTORY: Two children in good health. ALLERGIES: No known drug allergies. 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 PAST SURGICAL HISTORY: Two C-sections and 1 D and C. SOCIAL HISTORY: Fgc-rtvfixkar-e-day smoker for 9 years. No history of alcohol intake. Works at [employer]. FAMILY HISTORY: Mom is 42 in good health. Father 41 in good health. Two brothers in good health. REVIEW OF SYSTEMS: HEAD: No symptoms of frequent or severe headaches. EYES: No symptoms of blurred vision, double vision. EARS: No symptoms of frequent ear infection, difficulty hearing. NOSE: No symptoms of frequent nosebleeds, difficulty breathing through her nose. THROAT: No symptoms of frequent or severe sore throats, difficulty swallowing. RESPIRATORY SYSTEM: No history of asthma, chest pain, shortness of breath. PHYSICAL EXAMINATION: GENERAL: Well developed, well-nourished 22-year-old white female, alert, oriented x3 and cooperative in no acute distress, appears stated age. EYES: Conjunctivae are pink. Sclerae white, no evidence of jaundice. EARS: Had normal light reflex bilaterally. NOSE: Had normal mucosa. Septum is midline. There were no polyps. THROAT: No erythema or evidence of infection. Teeth are in good state of repair. HEAD: Was normocephalic, normal distribution of hair. NECK: Supple. Trachea is midline. Thyroid is not enlarged. There is no adenopathy appreciated. Both carotids are of good intensity. CHEST: Clear to auscultation and percussion. No wheezes, rales, or rhonchi appreciated. HEART: Had regular rhythm. S1 and S2 are normal. BREASTS: Normal. ABDOMEN: Revealed term size fetus, vertex presentation. Well-healed Pfannenstiel scar. PELVIC: Vertex floating. Cervix is anterior closed, 80% effaced. MUSCULOSKELETAL: No calf tenderness. IMPRESSIONS OF THIS CASE: History of severe toxemia, 2 previous sections, desire for permanent sterilization, term , history of a pain pill addiction. MTDD
== END | disposition home or self-care (01) ==
LOC: C.LABSPEC 14:29
PROVIDERS: ATTEND Obstetrics & Gynecology
DX: Z34.83 Encounter for supervision of other normal pregnancy, third trimester (principal)

== ENCOUNTER 2018-02-02 09:05 | Inpatient (IN) | payer BC, OTHER ==
--- NOTE | 2018-01-20 11:42 | HISTORY & PHYSICAL EXAMINATION ---
DATE OF ADMISSION: 02/02/2018 CHIEF COMPLAINT: Intrauterine at term, desire for permanent sterilization, 2 previous sections, pelvic pain and discomfort. HISTORY OF PRESENT ILLNESS: The patient is a 22-year-old 4, para 2. She had 1 spontaneous AB in first trimester at 8 weeks gestation . Her first was complicated by severe toxemia, which necessitated a delivery by at 28 weeks gestation. weighed 1 pound 15 ounce female and actually has done quite well. Her third was a repeat at 39 weeks. She did well, male, 6 pounds 12 ounces. She requests permanent sterilization. She has been made aware of the procedure of tubal ligation including the fact that this procedure is intended to result in permanent and irreversible sterility and that occasionally the procedure fails and that there are alternative temporary forms of control. Her history is also complicated by the fact that she was addicted to pain pills and she is presently on Subutex and she is also a 6-cigarette a day smoker. Recently, she has been having trouble with this swelling and pelvic pressure and pain and has difficulty sleeping and has taken off from work. PAST MEDICAL HISTORY: Two children in good health. ALLERGIES: No known drug allergies. 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 PAST SURGICAL HISTORY: Two C-sections and 1 D and C. SOCIAL HISTORY: Irf-lawaybabe-d-day smoker for 9 years. No history of alcohol intake. Works at [employer]. FAMILY HISTORY: Mom is 42 in good health. Father 41 in good health. Two brothers in good health. REVIEW OF SYSTEMS: HEAD: No symptoms of frequent or severe headaches. EYES: No symptoms of blurred vision, double vision. EARS: No symptoms of frequent ear infection, difficulty hearing. NOSE: No symptoms of frequent nosebleeds, difficulty breathing through her nose. THROAT: No symptoms of frequent or severe sore throats, difficulty swallowing. RESPIRATORY SYSTEM: No history of asthma, chest pain, shortness of breath. PHYSICAL EXAMINATION: GENERAL: Well developed, well-nourished 22-year-old white female, alert, oriented x3 and cooperative in no acute distress, appears stated age. EYES: Conjunctivae are pink. Sclerae white, no evidence of jaundice. EARS: Had normal light reflex bilaterally. NOSE: Had normal mucosa. Septum is midline. There were no polyps. THROAT: No erythema or evidence of infection. Teeth are in good state of repair. HEAD: Was normocephalic, normal distribution of hair. NECK: Supple. Trachea is midline. Thyroid is not enlarged. There is no adenopathy appreciated. Both carotids are of good intensity. CHEST: Clear to auscultation and percussion. No wheezes, rales, or rhonchi appreciated. HEART: Had regular rhythm. S1 and S2 are normal. BREASTS: Normal. ABDOMEN: Revealed term size fetus, vertex presentation. Well-healed Pfannenstiel scar. PELVIC: Vertex floating. Cervix is anterior closed, 80% effaced. MUSCULOSKELETAL: No calf tenderness. IMPRESSIONS OF THIS CASE: History of severe toxemia, 2 previous sections, desire for permanent sterilization, term , history of a pain pill addiction. MTDD
[2018-01-26 10:18] VITALS: BMI 27.0
--- NOTE | 2018-01-26 10:46 | PAT Medication Instructions ---
Service Date Jan 26, 2018. Current Home Medication List Buprenorphine Hcl (Subutex), 8 MG SL BID Multivit/Min/Iron/Fol Ac/Pren ( Vitamin), 1 TAB PO QAM Omeprazole (Omeprazole Dr), Unknown Dose QAM Ondansetron Hcl (Zofran), 4 MG PO UD PRN for Nausea Medication Instructions For Your Scheduled Surgery - Hold the following medications the morning of surgery: Multivit/Min/Iron/Fol Ac/Pren ( Vitamin), 1 TAB PO QAM - Take the following medications the morning of surgery with a sip of water: Buprenorphine Hcl (Subutex), 8 MG SL BID Omeprazole (Omeprazole Dr), Unknown Dose QAM Ondansetron Hcl (Zofran), 4 MG PO UD PRN for Nausea (if needed) - Take the following medications as scheduled the night before surgery: Buprenorphine Hcl (Subutex), 8 MG SL BID If you have any questions please call us at [phone] or [phone] or [phone]
[2018-01-26 12:50] LABS: BASO % 0.2 %; BASO ABS # 0.02 K/uL (0-0.2); EOS % 0.5 %; EOS ABS # 0.04 K/uL (0-0.5); HEMATOCRIT 31.5 % (37-47); HEMOGLOBIN 10.2 g/dL (12.0-16.0); IG# 0.02 K/uL (0.00-0.02); LYMPH % 29.4 %; LYMPH ABS # 2.42 K/uL (1.2-3.4); MEAN CELL VOLUME 76.8 fL (80-100); MEAN CORPUSCULAR HEMOGLOBIN 24.9 pg (25-34); MEAN CORPUSCULAR HGB CONC 32.4 g/dl (32-36); MONO % 6.6 %; MONO ABS # 0.54 K/uL (0.11-0.59); NEUT % 63.1 %; NEUT ABS # 5.19 K/uL (1.4-6.5); PLATELET COUNT 202 K/uL (130-400); RED CELL DISTRIBUTION WIDTH CV 13.9 % (11.5-14.5); RED CELL DISTRIBUTION WIDTH SD 39.4 fL (36.4-46.3); WHITE BLOOD COUNT 8.23 K/uL (4.8-10.8)
[2018-01-26 13:04] LABS: PTT PATIENT 24.3 SECONDS (21.0-31.0)
[2018-01-26 13:27] LABS: CALCIUM 8.4 mg/dl (8.5-10.1); CREATININE 0.67 mg/dl (0.60-1.20); POTASSIUM 3.6 mmol/L (3.5-5.1)
[~2018-02-02] VITALS: Ht 165.1 cm; Wt 73.5 kg
[~2018-02-02 09:05] MED LIST changes: -BUPR1SUB23 PO; +BUPR8SUB19 SL; +CEFOXITIN IV 2000 MG in DEXTROSE 5% 50ML IV SCH; +CITRIC ACID/SODIUM CITRATE 15 ML UDC PO SCH; +LACTATED RINGER'S 1000ML 1,000 ML IV SCH; +OMEP10CA; +ONDA4TAB46 PO; +PRENTAB26 PO
[2018-02-02] MEDS: LACTATED RINGER'S 1000ML 1,000 ML IV SCH ×2 (09:10→10:15)
[2018-02-02] MEDS ORDERED: CITRIC ACID/SODIUM CITRATE 15 ML UDC PO ONE ×2 (09:15→09:30)
[2018-02-02] MEDS ORDERED: LACTATED RINGER'S 1000ML 1,000 ML IV SCH ×2 (09:15→12:15)
--- NOTE | 2018-02-02 09:52 | History & Physical Bridge Note ---
H&P Re-Evaluation Bridge Note: I have examined the patient, reviewed the History & Physical and in the interval since the performance of the History & Physical I have noted the following changes of clinical significance: No changes noted
[2018-02-02 09:55] LABS: BASO % 0.1 %; BASO ABS # 0.01 K/uL (0-0.2); EOS % 0.3 %; EOS ABS # 0.02 K/uL (0-0.5); HEMATOCRIT 28.5 % (37-47); HEMOGLOBIN 9.1 g/dL (12.0-16.0); IG# 0.02 K/uL (0.00-0.02); LYMPH % 31.7 %; LYMPH ABS # 2.27 K/uL (1.2-3.4); MEAN CELL VOLUME 75.4 fL (80-100); MEAN CORPUSCULAR HEMOGLOBIN 24.1 pg (25-34); MEAN CORPUSCULAR HGB CONC 31.9 g/dl (32-36); MONO ABS # 0.43 K/uL (0.11-0.59); NEUT % 61.6 %; NEUT ABS # 4.42 K/uL (1.4-6.5); PLATELET COUNT 163 K/uL (130-400); RED CELL DISTRIBUTION WIDTH CV 14.1 % (11.5-14.5); WHITE BLOOD COUNT 7.17 K/uL (4.8-10.8)
[2018-02-02 10:04] LABS: PTT PATIENT 24.6 SECONDS (21.0-31.0)
[2018-02-02] MEDS ORDERED: LACTATED RINGER'S 1000ML 500 ML IV PRN (10:18)
[2018-02-02] MEDS ORDERED: NALOXONE HCL INJ 0.08 MG in SYRINGE 1.8 ML IV PRN (10:18)
[2018-02-02] MEDS ORDERED: SODIUM CHLORIDE 0.9% 1000ML 1,000 ML IV PRN (10:18)
[2018-02-02] MEDS ORDERED: NALOXONE HCL INJ 1 MG in SODIUM CHLORIDE 0.9% 1000ML 1,000 ML IV PRN (10:18)
[2018-02-02] MEDS ORDERED: MoRPHine SULFATE PF 1 MG/ML 10 ML AMP/VIAL ONE (10:25)
[2018-02-02 10:26] VITALS: Ht 165.1 cm; Wt 73.5 kg
[2018-02-02 10:30] LABS: CALCIUM 8.2 mg/dl (8.5-10.1); CREATININE 0.65 mg/dl (0.60-1.20); POTASSIUM 3.6 mmol/L (3.5-5.1)
[2018-02-02] MEDS ORDERED: DiphenhydrAMINE HCL 50 MG/ML VIAL IV PRN ×2 (10:30)
[2018-02-02] MEDS ORDERED: NALBUPHINE HCL INJ 10 MG/ML AMP IV PRN (10:30)
[2018-02-02] MEDS ORDERED: ONDANSETRON INJ 2 MG/ML 2 ML VIAL IV PRN ×2 (10:30)
[2018-02-02] MEDS ORDERED: MEPERIDINE HCL 25 MG/ML CARP IV PRN ×2 (10:30)
[2018-02-02] MEDS ORDERED: DC INTRASPINAL MORPHINE SCH (10:30)
[2018-02-02] MEDS ORDERED: ATROPINE SULFATE 0.1 MG/ML 5ML SYR IV PRN (10:30)
[2018-02-02] MEDS ORDERED: NO NARCOTICS OR SEDATIVES SCH (10:30)
[2018-02-02] MEDS ORDERED: HYDROmorphone INJ 1 MG/ML SYR IV PRN (10:30)
[2018-02-02] MEDS ORDERED: MoRPHine SULFATE PF 1 MG/ML 10 ML AMP/VIAL EPI PRN (10:30)
[2018-02-02] MEDS ORDERED: FENTANYL CITRATE INJ 50 MCG/1 ML 2 ML VIAL IV PRN (10:30)
[2018-02-02] MEDS ORDERED: LABETALOL HCL IV 5 MG/ML 20ML IV PRN (10:30)
[2018-02-02] MEDS ORDERED: NALOXONE HCL 0.4 MG/1 ML VIAL/CARP IV PRN (10:30)
[2018-02-02] MEDS ORDERED: EpHEDrine SULFATE INJ 50 MG/ML AMP IV PRN ×2 (10:30)
[2018-02-02] MEDS ORDERED: MoRPHine SULFATE 2 MG/ML CARP IV PRN (10:30)
[2018-02-02] MEDS ORDERED: PHENYLEPHRINE 100MCG/ML 5ML SYR ONE (10:53)
[2018-02-02] MEDS ORDERED: OXYTOCIN INJ 10 UNITS/ML VIAL ONE (10:53)
[2018-02-02] MEDS ORDERED: BUPIVACAINE/DEXTROSE 0.75%-8.25% 2 ML AMP ONE (11:09)
[2018-02-02] MEDS ORDERED: BENZOCAINE 20% AER SPR 82.5 GM CAN EXT PRN (12:15)
[2018-02-02] MEDS ORDERED: SUPERCREAM 0.870 % 15GM JAR EXT PRN (12:15)
[2018-02-02] MEDS ORDERED: HYDROCORTISONE ACETATE 25 MG SUPP PR PRN (12:15)
[2018-02-02] MEDS ORDERED: LANOLIN OINT EXT PRN (12:15)
[2018-02-02] MEDS ORDERED: SENNA 8.6 MG TAB PO PRN (12:15)
[2018-02-02] MEDS ORDERED: DIPHTHERIA/TETANUS/PERTUSSIS 0.5 ML SYR/VIAL IM. ONE (12:15)
[2018-02-02] MEDS ORDERED: MAGNESIUM HYDROXIDE SUSP 30 ML UDC PO PRN (12:15)
[2018-02-02] MEDS: KETOROLAC TROMETHAMINE 30 MG/ML VIAL IV. PRN ×2 (12:52→19:54)
--- NOTE | 2018-02-02 13:30 | OPERATIVE REPORT ---
DATE OF OPERATION: 02/02/2018 PROCEDURES: Repeat low segment section, bilateral tubal ligation. INDICATIONS FOR SURGERY: Two previous sections, one at 28 weeks gestation. PREOPERATIVE DIAGNOSES: Intrauterine at term, repeat section. POSTOPERATIVE DIAGNOSES: Intrauterine at term, repeat section, small area of dehiscence to the uterine scar. SURGEON: Jennifer Johnson MD. PATIENT SUPPORT ASSOCIATE: Natalia Schilling MD ESTIMATED BLOOD LOSS: 600 mL. ANESTHESIA: Spinal. OPERATIVE FINDINGS AND PROCEDURE: The patient was brought to the OR table, correctly identified by armband and conversation. Spinal anesthesia was administered. Perineum and vagina painted. Carpio catheter was inserted in the bladder connected to gravity drainage. Compression stockings were applied. The lower abdomen and upper thigh were painted with an alcohol based sterilizing solution, draped in the usual sterile fashion. Level of anesthesia was tested and found to be good. A Pfannenstiel incision was made through a previous scar. Incision was carried down to the anterior fascia by blunt and sharp dissection. The fascia was incised in the middle and then extended out laterally with the scissors. The fascia was from the rectus muscle by blunt and sharp dissection. Recti muscles were in the midline exposing peritoneum, which was carefully raised and entered. We had good exposure to lower uterine segment and adequate incision. This also revealed small dehiscence at the lower uterine segment just to the left of the midline, about 2 cm in diameter, and we could see the amniotic fluid through the peritoneum. We made an incision right over this defect and then entered the uterine cavity, extended it laterally bluntly, applied a vectis retractor to the head, and then with fundal pressure, we delivered the head. There was nuchal cord x2, was reduced over the head. started to cry before the body was even delivered. Infant was attended to by the marketing assistant retail division, who was scrubbed and present at the time of delivery. Cord was clamped and cut. Cord blood was taken. The placenta was removed manually. Uterus, tubes, and ovaries were brought out through the incision. A part of the lower uterine segment scar, which had thinned out, was cut, and then, we did a 3-layered closure. I did a muscular closure with continuous heavy duty chromic. I then did a horizontal suture of 0 Vicryl. I palpated the area, checked for any defects, and then did another layer over this with [id number] heavy duty Vicryl closing all the weak spots. I then reapproximated the peritoneum with a continuous chromic gut suture of 3-0, and then, we went to doing the tubal ligation. Started on the left tube, we ligated the tube proximally and distally, infiltrated with local, dissected out the 2 leaves of the broad ligament, dissected out a portion of the tube, and then closed the broad ligaments burying the proximal stump of the tube and exteriorizing the distal. We did run into a hematoma. I opened the hematoma, drained it, and then, I mass sutured it with a heavy duty chromic. After about 4 stitches, we achieved good hemostasis and had reduced the hematoma. We then went to the right tube. We grasped the right tube, ligated it proximally and distally with a plain tie, infiltrated the broad ligament, dissected the 2 leaves of the broad ligament out, cut the piece of tube, and then approximated broad ligament front to back burying the proximal stump of the tube and exteriorizing the distal. We then looked back at the repair on the left tube, everything was hemostatic. We cleansed the pelvis of all blood clots and debris, reinserted the uterus, tubes, and ovary into the abdomen. We reexamined everything, hemostasis was good. I did a careful anatomical approximation of the anterior abdominal wall. Peritoneum was closed with continuous chromic gut suture. Recti muscles were approximated with interrupted [id number] suture of chromic catgut. Fascia was closed with continuous interlocking suture of Vicryl on each side, tied in the midline. Subcu was approximated with a running plain and skin edges approximated with staple clips. I attest to the content of the Intraoperative Record and any orders documented therein. Any exception s are noted below.
--- NOTE | 2018-02-02 13:42 | Anesthesiology Progress Note ---
Anesthesia Post Op Note Date & Time February 02, 2018 at 13:42 Vital Signs Pain Intensity: 8.0 Notes Mental Status: alert / awake / arousable, participated in evaluation Pt Amnestic to Procedure: Yes Nausea / Vomiting: adequately controlled Pain: adequately controlled Airway Patency, RR, SpO2: stable & adequate BP & HR: stable & adequate Hydration State: stable & adequate Neuraxial Anesthesia: was administered, sensory block is resolving Anesthetic Complications: no major complications apparent
[2018-02-02] MEDS: SIMETHICONE 80 MG CHEW PO SCH ×3 (14:13→19:54)
[2018-02-02] MEDS: OXYTOCIN INJ 20 UNITS in LACTATED RINGER'S 1000ML 1,000 ML IV SCH ×2 (14:18→23:34)
[2018-02-02] MEDS: HYDROmorphone INJ 2 MG/ML SYR/VIAL IV PRN ×4 (15:33→15:59)
[2018-02-02 17:35] VITALS: BP 143/81; PULSE 56; TEMP 36.9; O2SAT 99
[2018-02-02 18:30] VITALS: O2SAT 98
[2018-02-02 19:30] VITALS: O2SAT 99
[2018-02-02] MEDS: DOCUSATE SODIUM 100 MG CAP PO SCH (19:54)
[2018-02-02] MEDS: BUPRENORPHINE HCL 8 MG SUBL SL SCH (20:01)
[2018-02-02 20:30] VITALS: BP 137/86; PULSE 54; TEMP 37; O2SAT 96
[2018-02-02 21:30] VITALS: O2SAT 99
[2018-02-02 23:40] VITALS: BP 133/77; PULSE 51; TEMP 36.8; O2SAT 98
[2018-02-03] VITALS (10 sets, daily range): BP systolic 114–143; BP diastolic 70–90; PULSE 51–82; TEMP 36.6–36.8; O2SAT 94–98
[2018-02-03] MEDS: KETOROLAC TROMETHAMINE 30 MG/ML VIAL IV. PRN (01:59)
[2018-02-03] MEDS ORDERED: ONDANSETRON INJ 2 MG/ML 2 ML VIAL IV PRN (04:30)
[2018-02-03] MEDS ORDERED: ZOLPIDEM TARTRATE 5 MG TAB PO PRN (04:30)
[2018-02-03] MEDS ORDERED: DiphenhydrAMINE HCL 50 MG/ML VIAL IV PRN (04:30)
[2018-02-03] MEDS ORDERED: KETOROLAC TROMETHAMINE 30 MG/ML VIAL IV. PRN (04:30)
[2018-02-03] MEDS ORDERED: CEFOXITIN IV 2,000 MG in DEXTROSE 5% 50ML 50 ML IV SCH (06:00)
[2018-02-03 06:35] LABS: BASO % 0.1 %; BASO ABS # 0.01 K/uL (0-0.2); EOS % 0.1 %; EOS ABS # 0.01 K/uL (0-0.5); HEMATOCRIT 28.8 % (37-47); HEMOGLOBIN 9.1 g/dL (12.0-16.0); IG# 0.02 K/uL (0.00-0.02); LYMPH % 19.3 %; LYMPH ABS # 1.76 K/uL (1.2-3.4); MEAN CORPUSCULAR HGB CONC 31.6 g/dl (32-36); MEAN PLATELET VOLUME 9.8 fL (7.4-10.4); MONO % 5.2 %; MONO ABS # 0.47 K/uL (0.11-0.59); NEUT % 75.1 %; NEUT ABS # 6.84 K/uL (1.4-6.5); PLATELET COUNT 135 K/uL (130-400); RED CELL DISTRIBUTION WIDTH CV 14.1 % (11.5-14.5); WHITE BLOOD COUNT 9.11 K/uL (4.8-10.8)
[2018-02-03] MEDS: SIMETHICONE 80 MG CHEW PO SCH ×4 (07:51→20:18)
[2018-02-03] MEDS: FERROUS SULFATE 325 MG TAB PO SCH (07:52)
[2018-02-03] MEDS: DOCUSATE SODIUM 100 MG CAP PO SCH ×2 (07:52→20:18)
[2018-02-03] MEDS: PRENATAL VITAMIN TAB PO SCH (07:53)
[2018-02-03] MEDS: BUPRENORPHINE HCL 8 MG SUBL SL SCH ×2 (07:56→20:18)
--- NOTE | 2018-02-03 08:39 | Progress Note ---
Subjective February 03, 2018. Subjective conversation w/ patient Ambulation: limited ambulation Voiding: no voiding problems Passing Gas: No Diet Tolerance: Clear Liquids Lochia: Small Review of Systems Constitutional: + fever Objective Vital Signs Date Time Temp Pulse Resp B/P (MAP) Pulse Ox O2 Delivery O2 Flow Rate FiO2 02/03/18 08:00 36.7 57 18 131/90 (104) 98 Room Air 02/03/18 04:20 18 95 02/03/18 03:20 36.8 51 18 132/76 (94) 95 Room Air 02/03/18 03:20 18 95 02/03/18 02:20 18 94 02/03/18 01:40 18 95 02/03/18 00:40 18 97 02/02/18 23:40 36.8 51 18 133/77 (95) 98 Room Air 02/02/18 23:40 98 Room Air 02/02/18 23:40 18 98 02/02/18 21:30 18 99 02/02/18 20:30 37.0 54 16 137/86 (103) 96 Room Air 02/02/18 20:30 16 96 02/02/18 19:30 16 99 02/02/18 18:30 16 98 02/02/18 17:35 16 99 02/02/18 17:35 36.9 56 16 143/81 (101) 99 Room Air 02/02/18 17:35 99 Room Air Physical Exam General Appearance: mild distress Respiratory/Chest: lungs clear Abdomen: non tender, + abnormal bowel sounds Fundus: Firm, Non-Tender Incision Description: Clean, Dry & Intact Extremities: no pedal edema, no calf tenderness Laboratory Results Last 24 Hours Test 02/02/18 09:15 02/02/18 09:42 02/03/18 06:14 White Blood Count 7.17 K/uL 9.11 K/uL Red Blood Count 3.78 M/uL 3.79 M/uL Hemoglobin 9.1 g/dL 9.1 g/dL Hematocrit 28.5 % 28.8 % Mean Corpuscular Volume 75.4 fL 76.0 fL Mean Corpuscular Hemoglobin 24.1 pg 24.0 pg Mean Corpuscular Hemoglobin Concent 31.9 g/dl 31.6 g/dl Platelet Count 163 K/uL 135 K/uL Mean Platelet Volume 10.0 fL 9.8 fL Neutrophils (%) (Auto) 61.6 % 75.1 % Lymphocytes (%) (Auto) 31.7 % 19.3 % Monocytes (%) (Auto) 6.0 % 5.2 % Eosinophils (%) (Auto) 0.3 % 0.1 % Basophils (%) (Auto) 0.1 % 0.1 % Neutrophils # (Auto) 4.42 K/uL 6.84 K/uL Lymphocytes # (Auto) 2.27 K/uL 1.76 K/uL Monocytes # (Auto) 0.43 K/uL 0.47 K/uL Eosinophils # (Auto) 0.02 K/uL 0.01 K/uL Basophils # (Auto) 0.01 K/uL 0.01 K/uL RDW Standard Deviation 39.0 fL 39.0 fL RDW Coefficient of Variation 14.1 % 14.1 % Immature Granulocyte % (Auto) 0.3 % 0.2 % Immature Granulocyte # (Auto) 0.02 K/uL 0.02 K/uL Prothrombin Time 10.1 SECONDS Prothromb Time International Ratio 1.0 Activated Partial Thromboplast Time 24.6 SECONDS Partial Thromboplastin Ratio 0.9 Sodium Level 139 mmol/L Potassium Level 3.6 mmol/L Chloride Level 107 mmol/L Carbon Dioxide Level 25 mmol/L Anion Gap 7.0 mmol/L Blood Urea Nitrogen 4 mg/dl Creatinine 0.65 mg/dl Est Creatinine Clear Calc Drug Dose 135.2 ml/min Estimated GFR () 145.0 Estimated GFR (Non- 125.1 BUN/Creatinine Ratio 6.3 Random Glucose 74 mg/dl Calcium Level 8.2 mg/dl Assessment and Plan Problem List Medical Problems: (1) Opiate withdrawal Status: Acute (2) Status: Acute Post-Op Day#: 1 Continue Routine Care: hypo active bowel sounds advised patient to chew gum
[2018-02-03] MEDS: IBUPROFEN 600 MG TAB PO PRN ×3 (11:38→23:17)
[2018-02-03] MEDS ORDERED: BISACODYL 5 MG TABEC PO ONE (22:00)
[2018-02-04] MEDS: IBUPROFEN 600 MG TAB PO PRN ×2 (05:06→09:08)
--- NOTE | 2018-02-04 06:43 | Progress Note ---
Subjective February 04, 2018. Subjective conversation w/ patient Ambulation: ambulating normally Voiding: no voiding problems Passing Gas: Yes Diet Tolerance: Regular Diet Lochia: Small Review of Systems Constitutional: + fever Objective Vital Signs Date Time Temp Pulse Resp B/P (MAP) Pulse Ox O2 Delivery O2 Flow Rate FiO2 02/03/18 23:15 97 Room Air 02/03/18 23:15 36.7 61 18 143/74 (97) 97 Room Air 02/03/18 16:20 95 Room Air 02/03/18 16:20 36.6 53 16 114/70 (85) 95 Room Air 02/03/18 11:38 36.8 82 18 119/74 (89) Room Air 02/03/18 08:00 36.7 57 18 131/90 (104) 98 Room Air 02/03/18 07:35 36.6 68 20 122/80 (94) Physical Exam General Appearance: WELL-APPEARING Respiratory/Chest: lungs clear Abdomen: normal bowel sounds, non tender Fundus: Firm, Non-Tender Incision Description: Clean, Dry & Intact Extremities: no pedal edema, no calf tenderness Assessment and Plan Problem List Medical Problems: (1) Opiate withdrawal Status: Acute (2) Status: Acute Post-Op Day#: 2
[2018-02-04] MEDS: PRENATAL VITAMIN TAB PO SCH (08:28)
[2018-02-04] MEDS: DOCUSATE SODIUM 100 MG CAP PO SCH (08:29)
[2018-02-04] MEDS: FERROUS SULFATE 325 MG TAB PO SCH (08:29)
[2018-02-04] MEDS: SIMETHICONE 80 MG CHEW PO SCH ×2 (08:29→12:15)
[2018-02-04] MEDS: BUPRENORPHINE HCL 8 MG SUBL SL SCH (08:41)
[2018-02-04 08:45] VITALS: BP 120/75; PULSE 83; TEMP 36.6; O2SAT 96
--- NOTE | 2018-02-04 11:53 | Discharge Instructions ---
Discharge Instructions Date of Service February 04, 2018. Admission Reason for Admission: Term , Previous Section Discharge Discharge Diagnosis / Problem: repeat section tubal ligation Discharge Goals Goal(s): Routine recovery after Activity Recommendations Activity Limitations: as noted below ACTIVITY RECOMMENDATIONS: * Gradual return to full activity over the next 2-3 weeks. * No lifting - nothing heavier than baby over the next 2-3 weeks. * Do not engage in vigorous exercise, sexual activity or sports for 6 weeks. * Do not drive or operate any motorized equipment for 14 days. * You may shower/bathe daily. DIET: Resume Previous Diet If Breast-feeding: * Increase caloric intake by 500 calories, eat 3 well balanced meals, 2 high protein snacks a day and drink 6-8 8oz. glasses of fluid per day. BREAST CARE: If you are not breast feeding: * Wear a supportive bra 24 hours a day for one to two weeks. * Avoid stimulating your breasts and nipples as much as possible during the first few weeks after delivery. * When taking a shower, have the warm water hit your back, not breasts. * When your breasts feel full, apply ice packs. Usually three to four times a day helps ease the discomfort. * Take a mild pain medication (Tylenol / Motrin) when you are uncomfortable. If breast feeding: * Use breast milk to lubricate nipples. Lansinoh cream may be used for sore nipples. You do not need to remove cream prior to breast feeding. If using a different brand of cream, check the label for directions regarding removal of cream prior to nursing. * Wear a supportive bra. * If having problems with breasts or breast feeding, call a software security consultant or your health care provider. VITAMINS: * One tablet daily. Continue taking while or until you have your check up in 6 weeks. SPECIAL CARE INSTRUCTIONS: * Vaginal rest (no tampons, douching, intercourse) until after doctor's visit. * control as discussed with doctor. * Verbalizes understanding of car seat law as reviewed with patient by nursing. * Car Seat hand-out given and reviewed with patient by nursing. * Shaken baby information reviewed with patient by nursing. Call you doctor if: * Heavy bleeding (saturating a pad an hour) or passing clots the size of your fist. Bleeding has a foul smelling odor. * A fever greater than 100.4 degrees F (38 degrees C) on two occasions four hours apart and/or chills. * Unusual pain in the pelvic or vaginal areas. Pain should improve each day . * Call the doctor for any increased redness, drainage or swelling around the incision and any pain unrelieved by prescribed pain medication. * Signs and symptoms of phlebitis(possible blood clots forming in the veins): leg pain, warm, red or swollen area on leg. * "Baby Blues" lasting longer than two weeks. If you have any questions or concerns, call your health care practitioner at [phone]. FOLLOW-UP VISIT: Follow-up visit for examination in 6 weeks. Incision check (staple removal) in 1 week. Please call office at [phone] if not already scheduled. . Current Hospital Diet ACTIVITY RECOMMENDATIONS: * Gradual return to full activity over the next 2-3 weeks. * No lifting - nothing heavier than baby over the next 2-3 weeks. * Do not engage in vigorous exercise, sexual activity or sports for 6 weeks. * Do not drive or operate any motorized equipment for 14 days. * You may shower/bathe daily. DIET: Resume Previous Diet If Breast-feeding: * Increase caloric intake by 500 calories, eat 3 well balanced meals, 2 high protein snacks a day and drink 6-8 8oz. glasses of fluid per day. BREAST CARE: If you are not breast feeding: * Wear a supportive bra 24 hours a day for one to two weeks. * Avoid stimulating your breasts and nipples as much as possible during the first few weeks after delivery. * When taking a shower, have the warm water hit your back, not breasts. * When your breasts feel full, apply ice packs. Usually three to four times a day helps ease the discomfort. * Take a mild pain medication (Tylenol / Motrin) when you are uncomfortable. If breast feeding: * Use breast milk to lubricate nipples. Lansinoh cream may be used for sore nipples. You do not need to remove cream prior to breast feeding. If using a different brand of cream, check the label for directions regarding removal of cream prior to nursing. * Wear a supportive bra. * If having problems with breasts or breast feeding, call a software security consultant or your health care provider. VITAMINS: * One tablet daily. Continue taking while or until you have your check up in 6 weeks. SPECIAL CARE INSTRUCTIONS: * Vaginal rest (no tampons, douching, intercourse) until after doctor's visit. * control as discussed with doctor. * Verbalizes understanding of car seat law as reviewed with patient by nursing. * Car Seat hand-out given and reviewed with patient by nursing. * Shaken baby information reviewed with patient by nursing. Call you doctor if: * Heavy bleeding (saturating a pad an hour) or passing clots the size of your fist. Bleeding has a foul smelling odor. * A fever greater than 100.4 degrees F (38 degrees C) on two occasions four hours apart and/or chills. * Unusual pain in the pelvic or vaginal areas. Pain should improve each day . * Call the doctor for any increased redness, drainage or swelling around the incision and any pain unrelieved by prescribed pain medication. * Signs and symptoms of phlebitis(possible blood clots forming in the veins): leg pain, warm, red or swollen area on leg. * "Baby Blues" lasting longer than two weeks. If you have any questions or concerns, call your health care practitioner at [phone]. FOLLOW-UP VISIT: Follow-up visit for examination in 6 weeks. Incision check (staple removal) in 1 week. Please call office at [phone] if not already scheduled. Patient's current hospital diet: Regular OB Diet Discharge Diet Recommended Diet: Regular Diet Procedures Procedures Performed: Live Male Infant at 1102 via Caesarean Section Pending Studies Studies pending at discharge: no Medical Emergencies . Who to Call and When: Medical Emergencies: If at any time you feel your situation is an emergency, please call 911 immediately. . Non-Emergent Contact Non-Emergency issues call your: Veterinary Epidemiologist Call Non-Emergent contact if: temperature is above 100.5 . . "Provider Documentation" section prepared by Cody Johnson. .
--- NOTE | 2018-02-04 12:12 | DISCHARGE SUMMARY ---
Mrs. Yee has a history of having a premature delivery with her first at 28 weeks' gestation due to severe toxemia of . This delivery was via . Her second was a term without any problems, repeat and she has had no problems with the present . She was admitted at 39+ weeks' gestation. She also at this point requested permanent sterilization and she was informed of the nature of the procedure of tubal ligation including the fact it is intended to result in permanent and irreversible sterility. On the day of admission, she was taken to the OR where she underwent repeat low segment section, it was noted that she has small area of dehiscence in the incision. Once the baby was delivered, this defect was repaired and a tubal ligation was performed. Postoperatively, she did well. She remained afebrile. It took about 24 hours for her bowel sounds to return and on the second postoperative day, she was ambulating well, eating well and requested early discharge. She was given Motrin for pain control, told to return to the office for removal of dom and to call if she had a temperature over 100 or any heavy bleeding.
[2018-02-04] MEDS ORDERED: BISACODYL 10 MG SUPP PR PRN (12:15)
[2018-02-04 12:50] VITALS: BP_DIAS 75; PULSE 83; TEMP 36.6
== END 2018-02-04 12:55 | disposition home or self-care (01) | DRG 766 ==
LOC: C.LD 09:05 → EDSTATUS 10:30 → C.OBG 16:20
PROVIDERS: ADMIT Obstetrics & Gynecology; ATTEND Obstetrics & Gynecology
PROC: 0UB70ZZ Excision of Bilateral Fallopian Tubes, Open Approach (ICD-10-PCS; principal; 2018-02-02 10:30)
PROC: 10D00Z1 Extraction of Products of Conception, Low, Open Approach (ICD-10-PCS; principal; 2018-02-02 10:30)
DX: O34.211 Maternal care for low transverse scar from previous cesarean delivery (principal); O09.293 Supervision of pregnancy with other poor reproductive or obstetric history, third trimester; O99.334 Smoking (tobacco) complicating childbirth; O69.81X0 Labor and delivery complicated by cord around neck, without compression, not applicable or unspecified; Z3A.39 39 weeks gestation of pregnancy; Z37.0 Single live birth; F17.210 Nicotine dependence, cigarettes, uncomplicated; Z79.891 Long term (current) use of opiate analgesic; Z79.899 Other long term (current) drug therapy